=== PATIENT | female | born 1940 | race Caucasian/White ===

== ENCOUNTER 2020-01-03 08:44 | Observation (INO) | payer MEDICARE ==
[~2020-01-03] VITALS: Ht 152.4 cm; Wt 77.8 kg
[~2020-01-03 08:44] MED LIST: ADULT LOW DOSE81 MG PO; ASPIRIN EC325 MG PO; AZOPT10 ML OU; BENICAR HCT 401 EAC1 PO; CALTRATE 600 +1 EAC1 PO; CEPHALEXIN500 MG PO; CLOPIDOGREL75 MG PO; HYDROCODON-ACE1 EAC8 PO; I-CAPS WITH LU1 EACH PO; IRON27 MG PO; LEVOTHYROXINE25 MCG PO; LIOTHYRONINE SO5 MCG PO; LUMIGAN2.5 M1 OU; MECLIZINE HCL25 MG PO; MELATONIN10 M2 PO; METOPROLOL SUCC25 MG PO; METOPROLOL SUCC50 MG PO; MIRALAX17 GM PO; NABUMETONE750 MG PO; NITROGLYCERIN12 GM NAS; NORCO 7.5-3251 EACH PO; ONDANSETRON HCL8 MG PO; OXYCODONE HCL5 MG PO; PANTOPRAZOLE SO40 MG PO; SIMVASTATIN80 MG PO; TRAZODONE HCL100 MG PO; VALACYCLOVIR1000 MG PO; XARELTO10 MG PO; ZANTAC 7575 MG PO; ZYRTEC10 MG PO
--- NOTE | 2020-01-03 16:02 | EKG ---
[facility] [address] [facility] [facility] [place], [place] [address] Signed Sinus tachycardia with 2nd degree AV block (Mobitz I) Low voltage QRS Cannot rule out Anteroseptal infarct (cited on or before 08-OCT-2016) ST \T\ T wave abnormality, consider inferior ischemia Abnormal ECG When compared with ECG of 08-OCT-2016 13:23, Significant changes have occurred Confirmed by TAMMY ESPOSITO MD ([id number]) on 01/03/2020 4:02:10 PM Electronically Signed By: TAMMY ESPOSITO MD 01/03/20 1602 PATIENT NAME: EUN HANNAH Electrocardiogram DATE OF : 36 PHYSICIAN: TAMMY ESPOSITO MD REPORT #: [id number] REPORT IS CONFIDENTIAL AND NOT TO BE RELEASED WITHOUT AUTHORIZATION
--- NOTE | 2020-01-03 16:21 | NUR ---
REPORT RECEIVED FROM ER.
[2020-01-03] MEDS ORDERED: COSOPT EYE DROP10 ML OU (16:27)
--- NOTE | 2020-01-03 17:05 | NUR ---
PT ARRIVED TO FLOOR VIA STRETCHER. PT IS ORIENTED TO DATE, REASON FOR ADMISSION, AND PLACE. LUNGS CLEAR. HEART SOUNDS REGULAR. BOWEL TONES ACTIVE. IV FLUIDS AND ABX STARTED. ORIENTED TO ROOM. DINNER ORDERED. CALL LIGHT IN REACH.
--- NOTE | 2020-01-03 19:11 | NUR ---
PATIETN SITTING UP IN BED WORKING ON DINNER. NO VOID, RN AWARE. CALL LIGHT IN REACH. NO FURTHER NEEDS AT THIS TIME.
--- NOTE | 2020-01-03 19:15 | NUR ---
BEDSIDE REPORT RECEIVED FROM OFFGOING RNZAK.
--- NOTE | 2020-01-03 19:30 | NUR ---
PATIENT WANTING TO USE THE TOILET. THIS GAS SYSTEMS WORKER AND MICROBIOLOGY MANAGER SULEIMAN HELPED PATIENT. USED WALKER. PATIENT IS BACK IN BED. CALL LIGHT IN REACH. WIPED FACE AND HANDS. OFFERED TO HAVE DENTURES SOAKED OVERNIGHT. PATIENT REFUSED STATED SHE TAKES IT OFF IN THE MORNING AND CLEANED AND PUT IT BACK ON. BED ALARM ON FOR SAFETY. ICE WATER REFILLED.
--- NOTE | 2020-01-03 19:35 | NUR ---
CALL LIGHT ANSWERED. 1PA W FWW TO RESTROOM FOR VOID AND BACK TO BED. CHUX CHANGED, ATTENDS IN PLACE. CALL LIGHT IN REACH, BED ALARM ON.
--- NOTE | 2020-01-03 21:00 | NUR ---
PT ASSESSMENT COMPLETE. PT RESTINGI N BED WATCHING TV. DENIES PAIN, NAUSEA, OR SOB. PT ALERT AND ORIENTED. VERY TALKATIVE ABOUT HER PAST, MARRIAGES, AND CHILDREN. PT IN GOOD SPIRITS. TELE#[address], SR, HR 84. BLE WARM AND REDDENED, PT DENIES TENDERNESS. CMS INTACT. ICE WATER REFILLED. PT ORIENTED TO ROOM AND CALL LIGHT SYSTEM, AGREES TO USE FOR NEEDS. ROOM IN VIEW OF RN STATION. PT DENIES FURTHER NEEDS.
--- NOTE | 2020-01-03 23:16 | NUR ---
PT RESTING IN BED, LYING ON HER L SIDE. RESPIRATIONS EVEN AND UNLABORED. APPEARS TO BE SLEEPING. CALL LIGHT IN REACH. ROOM IN VIEW OF RN STATION.
--- NOTE | 2020-01-04 02:23 | NUR ---
PT ASSESSMENT COMPLETE. PT SITTING AT EDGE OF BED WITH BED ALARM SOUNDING. PT REPORTS THAT SHE NEEDS TO USE THE BATHROOM. PT ASSISTED TO BATHROOM AND BACK TO BED WITH 1 PA. TOLERATED WELL. PT DENIES PAIN, NAUSEA, OR SOB. REDNESS TO BLE'S CONTINUES, WARM TO TOUCH. PT DENIES PAIN OR TENDERNESS. HYDROGRAPHIC ENGINEER INTACT TO ALL EXTREMTIES. BED ALARM ACTIVE. PT DENIES FURTHER NEEDS. CALL LIGHT IN REACH.
--- NOTE | 2020-01-04 03:30 | NUR ---
INTERMODAL DISPATCHER TO ROOM FOR BED ALARM SOUNDING. PT ATTEMPTING TO PULL BLANKETS OFF, STATES SHE WAS TRYING TO GET UNTANGLED FROM TELE MONITOR. TELE PLACED BACK IN GOWN POCKET. PT DENIES FURTHER NEEDS AT THIS TIME. CALL LIGHT IN REACH.
--- NOTE | 2020-01-04 07:23 | NUR ---
REPORT RECEIVED. PT IN BED. SBA WIT HFWW TO BATHROOM. BACK TO BED. BED ALARM IN PLACE. CALL LIGHT IN REACH.
--- NOTE | 2020-01-04 08:36 | NUR ---
PT ASSISSTED TO CHAIR FOR BREAKFAST.
--- NOTE | 2020-01-04 09:45 | NUR ---
CM initial assessment completed with pt. She is eating. States she lives alone on [address]. There on 3 hours on the property and everyone looks out for her. Her son in law, Vinh, visits daily. Pt uses a walker for DME. She no longer drives. States she was 2 years ago. Plans on going home, denies need for any placement.
--- NOTE | 2020-01-04 10:23 | NUR ---
PATIENT IN BED WATCHING TV, BED ALARM ON. WARM WASHCLOTH GIVEN. AM CARE DONE. CALL LIGHT IN REACH. NO FURTHER NEEDS AT THIS TIME.
--- NOTE | 2020-01-04 11:15 | NUR ---
PT ASSISTED BACK TO BED. BED ALARM IN PLACE. DENEIS PAIN. CALL LIGHT IN REACH.
--- NOTE | 2020-01-04 11:24 | NUR ---
MED REC COMPLETE
--- NOTE | 2020-01-04 12:49 | NUR ---
PT ASSISTED TO BATHROOM FOR 1 UNMEASURED VOID. ASSISTED TO CHAIR. VISITING WITH DAUGHTER.
--- NOTE | 2020-01-04 13:42 | NUR ---
PATIENT TO BED FROM CHAIR, 1PA FWW. BED ALARM ON. FRESH WATER GIVEN. CALL LIGHT IN REACH. NO FURTHER NEEDS AT THIS TIME.
--- NOTE | 2020-01-04 14:23 | NUR ---
PT RESTING IN BED ALERT AND SOMEWHAT CONFUSED. PT RAMBLED SOME SWITCH SUBJECTS AND SEEMED TO GET SOME IMPORTANT FACTS AND TIMELINES OUT OF ORDER. PT IS VERY PLEASANT, REQUESTED PRAYER AND LEFT G.POST
--- NOTE | 2020-01-04 16:16 | NUR ---
PATIENT REFUSED SHOWER, SAID SHE WOULD RATHER DO IT TOMORROW MORNING.
--- NOTE | 2020-01-04 16:47 | NUR ---
PT REFUSING TO GET OOB TO CHAIR FOR DINNER. REQUESTING WARM BLANKET. CALL LIGHT IN REACH.
--- NOTE | 2020-01-04 17:10 | NUR ---
ATTEMPTED TO GET PT OOB TO CHAIR FOR DINNER AGIAN. PT AGAIN REFUSED. EDUCATED ON IMPORTANCE OF NOT STAYING IN BED. PT AWARE.
--- NOTE | 2020-01-04 19:07 | NUR ---
PATIENT UP TO BATHROOM AND BACK TO BED, 1PA FWW. CALL LIGHT IN REACH. NO FURTHER NEEDS AT THIS TIME.
--- NOTE | 2020-01-04 19:33 | NUR ---
REPORT RECEIVED FROM DAY SHIFT RN. PT SBA WITH FWW TO BR WITH SCULLION CHIEF. BACK TO BED, ARABELLA WELL. IVF INFUSING. DENIES NEEDS. CALL LIGHT IN REACH. BED ALARM ON FOR SAFETY. WHITE BOARD UPDATED.
--- NOTE | 2020-01-04 20:48 | NUR ---
PT DAY RN CONTACTED, TELE WAS DC'D PER DR ESPOSITO.
--- NOTE | 2020-01-04 21:20 | NUR ---
EVENING ASSESSMENT COMPLETE. SCHEDULED MEDS ADMINISTERED PER EMAR. IVF INFUSING. PT DENIES PAIN OR NAUSEA. BLE WARM TO TOUCH. REDNESS AND EDEMA NOTED. NO FURTHER NEEDS. CALL LIGHT IN REACH. BED ALARM FOR SAFETY.
--- NOTE | 2020-01-05 00:49 | NUR ---
CALL LIGHT ANSWERED. PT UP TO BR WITH 1PA AND FWW TO VOID AND HAVE BM. GAIT STEADY. BACK TO BED, ARABELLA WELL. BED ALARM ON. CALL LIGHT IN REACH.
--- NOTE | 2020-01-05 01:35 | NUR ---
PT LYING IN BED RESTING WITH EYES CLOSED, NAD. BED ALARM ON. IVF INFUSING.
--- NOTE | 2020-01-05 05:53 | NUR ---
PT SLEPT WELL. CONFUSED AT TIMES. BED ALARM BUT DOES USE CALL LIGHT. 1PA WITH FWW. RA. AFEBRILE. EDEMA AND REDNESS BLE. IVF. IV ABX. VOID QS. BM X 2 THIS SHIFT.
--- NOTE | 2020-01-05 07:30 | NUR ---
PATIENT USING THE BATHROOM. ONE PERSON ASSISTING WITH WALKER. PATIENT BACKS TO BED. WHITE BOARD UPDATED. CALL LIGHT WITHIN REACH. NO OTHER NEEDS AT THIS TIME
--- NOTE | 2020-01-05 07:35 | NUR ---
received report from bebo molina. pt awake and has pushed call light to go to the bathroom. bernardino collazo in to help pt to restroom at this time
--- NOTE | 2020-01-05 08:37 | NUR ---
IN PTS ROOM TO GIVE MORNING MEDS AND DO MORNING ASSESSMENT. PT STATES THAT SHE WANTS A NAP AND STATES THAT HER BACK IS UNCOMFORTABLE AT THIS TIME SO SHE IS LAYING ON HER RIGHT SIDE
[2020-01-05] MEDS ORDERED: CEPHALEXIN250 MG PO (08:57)
--- NOTE | 2020-01-05 09:59 | NUR ---
PATIENT RESTING IN BED. VITAL SIGNS AND I&O DONE. PATIENT'S BREAKFASR ORDERED. CALL LIGHT WITHIN REACH. NO OTHER NEEDS AT THIS TIME
--- NOTE | 2020-01-05 11:01 | NUR ---
PATIENT RESTING IN BED. PATIENT USES THE BATHROOM, ONE PERSON ASSITING WITH WALKER. PATIENT DID ORAL CARE. PATIENT BACKS TO BED. CALL LIGHT WITHIN REACH. BED ALARM ON. NO OTHER NEEDS AT THIS TIME
--- NOTE | 2020-01-05 12:58 | NUR ---
PT ALERT, LAYING IN BED WITH COVERS PULLED UP. PT WAS WATCHING CARTOONS, ASKED IF I COULD TURN TV OFF. PT SAYS THAT SHE IS READY FOR HER OWN COOKING, "THE STAFF TRY HARD, BUT IT'S NOT MINE". PT THEN BEGAN TO RAMBLE, SURPRISING AT LANGUAGE PT USES TO EXPRESS HERSELF. PT IS TO DC TODAY HOME AND HER DAUGHTER IS COMING. PT OFTEN TALKS ABOUT LOSING HER AND HOW THEY MET. PT REQUESTED PRAYER BEFORE I LEFT
== END 2020-01-05 12:25 | disposition home or self-care (01) ==
LOC: ED 08:44 → MS 08:45
PROVIDERS: ADMIT Internal Medicine
DX: F03.90 Unspecified dementia, unspecified severity, without behavioral disturbance, psychotic disturbance, mood disturbance, and anxiety (principal); R44.3 Hallucinations, unspecified; L03.115 Cellulitis of right lower limb; L03.116 Cellulitis of left lower limb; E03.9 Hypothyroidism, unspecified; I10 Essential (primary) hypertension; I25.10 Atherosclerotic heart disease of native coronary artery without angina pectoris; Z87.891 Personal history of nicotine dependence
CPT/HCPCS: 36415; 70450; 71046; 74177; 80048; 80053; 81001; 83605; 83615; 83735; 84100; 84484; 85025; 85379; 93005; 93010; 96361; 96365; 96366; 99285-25; C9803; G0378; J0696; J3480; Q9967; U0002

== ENCOUNTER 2021-10-02 15:44 | Inpatient (IN) | payer MEDICARE ==
[~2021-10-02] VITALS: Ht 152.4 cm; Wt 80.2 kg
[~2021-10-02 15:44] MED LIST changes: +CEPHALEXIN250 MG PO; +COSOPT EYE DROP10 ML OU; -NITROGLYCERIN12 GM NAS; +NITROGLYCERIN12 GM TL
[2021-10-02] MEDS ORDERED: LEVOTHYROXINE75 MCG PO (18:35)
[2021-10-02] MEDS ORDERED: OLMESARTAN-HCT1 EAC1 PO (18:35)
[2021-10-02] MEDS ORDERED: LUMIGAN2.5 M1 OU (18:38)
--- NOTE | 2021-10-02 20:16 | NUR ---
PATIENT ARRIVE TO THE FLOOR VIA STRETCHER. STAFF ASSISTED PATIENT TO HOSPITAL BED. PATIENTS ADMISSION COMPELTED BY DAMON TRUJILLO RN. PATIENT ASSESMENT COMPLETED. SCHEDULED MEDICATIONS GIVEN PER ORDER. PATIENTS IV INFUSING PER ORDER. PATIENT DENIES ANY PAIN OR NAUSEA. PATIENT PROVIDED WITH SANDWICH BOX AND FERSH ICE WATER. PATIENT IS ORIENT TO SELF AND FAMILY. PATIENTS RECOGNITION OF EVENTS LEADING UP TO HOSPITAL VISIT ARE SCATTERED. BED ALARM PLACED ON FOR SAFETY. CALL LIGHT IN REACH.
--- NOTE | 2021-10-02 21:39 | NUR ---
NEW IV STARTED. IV INFUSING PER ORDER. PATIENT FINISHED SANDWICH BOX. PATIENT DENIES ANY NEEDS. CALL LIGHT IN REACH. BED ALARM ON FOR SAFETY.
--- NOTE | 2021-10-02 22:54 | NUR ---
PATIENT FOUND WITH GOWN OFF. PATIENTS GOWN PLACED BACK ON. PATIENT ASSISTED A 2PA PIVOT TO [facility]. PATIENT STRUGGLED WITH ACTIVITY. PATIENT ABLE TO VOID. PATIENT IS BACK IN BED RESTING. PATIENTS IV INFUSING PER ORDER. PATIENT DENIES ANY NEEDS. CALL LIGHT IN REACH. BED ALARM ON FOR SAFETY.
--- NOTE | 2021-10-02 23:51 | NUR ---
2 PA. PATIENT WAS UP TO BEDSIDE COMMODE. PATIENT'S LEG DOES NOT COOPERATE WELL ON MAKING STEP. A LITTLE BETTER GETTING UP AT THE RIGHT SIDE OF THE BED. PATIENT IS BACK IN BED. BED ALARM ON. CALL LIGHT IN HAND.
--- NOTE | 2021-10-03 00:06 | NUR ---
PATIENT SEEN BY THIS RN TRYING TO GET OUT OF BED. PATIENT ASSISTED TO THE BSC A 2PA PIVOT XFER. PATIENT ABLE TO VOID. PATIENT BACK IN BED RESTING. PATIENTS BED ALARM ON FOR SAFETY. CALL LIGHT IN REACH.
--- NOTE | 2021-10-03 01:05 | NUR ---
PATIENT IS RESTING IN BED WITH EYES CLOSED, RR 17. CALL LIGHT IN REACH. BED ALARM ON FOR SAFETY. IV INFUSING PER ORDER.
--- NOTE | 2021-10-03 01:42 | NUR ---
PATIENTS VITALS TAKEN AND RECORDED. PATIENTS ATTEND IS DRY AT THIS TIME. IV INFUSING PER ORDER. PATIENT DENIES ANY NEEDS. CALL LIGHT IN REACH. BED ALARM ON FOR SAFETY.
--- NOTE | 2021-10-03 01:59 | NUR ---
VITALS TAKEN AND RECORDED. INTAKE AND OUTPUT RECORDED. PATIENTS ATTEND IS DRY AT THIS TIME. NO NEEDS NOTED. CALL LIGHT IN REACH. BED ALARM ON FOR SAFETY.
--- NOTE | 2021-10-03 03:58 | NUR ---
PATIENT IS RESTING IN BED WITH EYES CLOSED, RR 19. CALL LIGHT IN REACH. BED ALARM ON FOR SAFETY.
--- NOTE | 2021-10-03 06:02 | NUR ---
PATIENT ASSISTED TO THE BSC A 2PA. PATIENT WAS ABLE TO VOID. PATIENT IS BACK IN BED RESTING. VITALS TAKEN AND RECORDED. IV INFUSING PER ORDER. NO FURTHER NEEDS NOTED. CALL LIGHT IN [facility]. BED ALARM ON FOR SAFETY.
--- NOTE | 2021-10-03 07:33 | NUR ---
Patient is laying in bed supine, eyes closed, respirtion 17, apperaing to be in no distress. Bedside shift report completed, however we did not wake the patient due to she had not been sleeping while during the night, and is now resting.
--- NOTE | 2021-10-03 08:48 | NUR ---
due to the patient's weakness, the orthostatic where completed about 3 minutes apart, laying and standing document, sitting BP 165/67 pulse 67.
--- NOTE | 2021-10-03 08:50 | NUR ---
AM assessment completed, AM medications given, and assisted the patient to the bedside commode, 1 assist to the bedside commode, however 2 assist to wipe and return her back to bed. Her legs per the pateint feel very heavey, and she is very weak. PT is to see the patient.
--- NOTE | 2021-10-03 09:50 | NUR ---
Spoke with Yokasta. She states she lives alone on [facility] [address]. Family live in [place] and daughter visits her everyday and helps her with any needs. Daughter completes house hold tasks, shopping, cooking, assists her to shower. Pt denies needs and plans on dc to home as soon as possible.
--- NOTE | 2021-10-03 09:54 | NUR ---
Patient in bed at this time. Her thyroid medications is finally correct and has been reviewed, so medication is now being given.
--- NOTE | 2021-10-03 10:55 | NUR ---
patient up in the chair, no new compliants, she is a little more oriented at this time. Case Management is at bedside
--- NOTE | 2021-10-03 11:11 | NUR ---
IV pump alarming, fluids low. Readjusted the volume, and called pharmacy for a new bag. Patient at this time is still sitting up in the chair. She reports no pain, and her respiration are 18
--- NOTE | 2021-10-03 11:53 | NUR ---
Patient called for assistance cause something was beep, went to assess the assistance needed, the beeping was her IV pump, then she had more questions. She was sitting in the her chair, had call light to her ear. When I asked how I could help, she was like "I need my walker to go to the bathroom, and how do I get a hold to my daughter, and when am I going home. " Updated the patient again, she verbalized some understanding, however had a very puzzled look to her.
--- NOTE | 2021-10-03 13:15 | NUR ---
patient's daughter at the bedside while she is on lunch, patient called the daughter stating she wanted to go home. Verified with the MD and as we thought until her weakness has improved to a safe level she will not be discharged, updated the patient and the daughter.
--- NOTE | 2021-10-03 15:20 | NUR ---
patient in the chair with eyes closed, respiration at 17, no acute distress noted.
--- NOTE | 2021-10-03 16:15 | NUR ---
patient sitting in the chair watching TV, no pain, no respitory distress, intermittent confusion, history of dementia.
--- NOTE | 2021-10-03 16:19 | NUR ---
MD at bedside talking with the patient, afternoon assessment completed. No compliants from the patient
--- NOTE | 2021-10-03 16:22 | NUR ---
medications reconciled using pharmacy records, PCP notes and patient interview
--- NOTE | 2021-10-03 17:16 | EKG ---
[facility] [address] [place] [address] Signed Normal sinus rhythm Low voltage QRS Cannot rule out Anterior infarct (cited on or before 08-OCT-2016) Abnormal ECG When compared with ECG of 03-JAN-2020 12:26, Sinus rhythm is no longer with 2nd degree AV block (Mobitz I) Questionable change in initial forces of Anterior leads Nonspecific T wave abnormality has replaced inverted T waves in Inferior leads Nonspecific T wave abnormality now evident in Anterior leads Confirmed by WAYNE MARTIN MD ([id number]) on 10/03/2021 5:16:29 PM Electronically Signed By: WAYNE MARTIN MD 10/03/21 1716 PATIENT NAME: EUN HANNAH Electrocardiogram DATE OF : 36 PHYSICIAN: WAYNE MARTIN MD REPORT #: [id number] REPORT IS CONFIDENTIAL AND NOT TO BE RELEASED WITHOUT AUTHORIZATION
--- NOTE | 2021-10-03 18:15 | NUR ---
patient eating dinner, IV antibiotic started. Patient is having increased confusion as the sun sets
--- NOTE | 2021-10-03 19:40 | NUR ---
RECEIVED REPORT FROM DAY SHIFT RN. PATIENT IS RESTING IN BED. NO NEEDS NOTED. ALARM ON FOR SAFETY
--- NOTE | 2021-10-03 20:32 | NUR ---
PT IN BED, REPOSITIONED WITH AUTOMATIC HEMMER ASSISTANCE. PRIOR TO THIS, PT WITH LEGS OVER S/R, WANTING TO USE BATHROOM. WITH 2, PT OUT OF BED, FWW TO [facility], HAD UNMEASURED VOID WITH SMALL SOFT BM. CLEAN ATTENDS PLACED, THEY WERE URINE SOILED. BACK TO BED WITH ONE ASSIST, CUEING. NOTED IV CATH LAYING ON FLOOR PRIOR TO ASSISTING PT UP OUT OF BED, ONE IN THE LAC REMAINS. CATH INTACT, PT UNAWARE TO HOW IT WAS ON THE FLOOR. VS COMPLETED, CALL LIGHT WITHIN REACH, BED ALARM ON.
--- NOTE | 2021-10-03 20:40 | NUR ---
PATIENT ASSESEMENT COMPLETED. PATIENTS ATTEND IS DRY AT THIS TIME. PATIENTS IV FLUSHED AND SL PER ORDER. PATIENTS SCHEDULED MEDICATIONS GIVEN PER ORDER. PATIENT REORIENTED TO SURROUNDINGS. PATIENT DENIES ANY NEEDS. CALL LIGHT IN REACH. BED ALARM ON FOR SAFETY.
--- NOTE | 2021-10-03 21:30 | NUR ---
ASSISTED RN WITH BOOST IN BED
--- NOTE | 2021-10-03 23:03 | NUR ---
PATIENT IS RESTING IN BED WITH EYE CLOSED, RR 15. CALL LIGHT IN REACH. BED ALARM ON FOR SAFETY.
--- NOTE | 2021-10-04 01:15 | NUR ---
PATIENT ASSISTED TO THE BSC A 1PA W/FWW. PATIENT ABLE TO VOID. PATIENT BACK IN BED RESTING. PATIENT DENIES ANY NEEDS. CALL LIGHT IN REACH. BED ALARM ON FOR SAFETY.
--- NOTE | 2021-10-04 02:42 | NUR ---
PATIENT IS RESTING IN BED WITH EYES CLOSED, RR 16. CALL LIGHT IN REACH. BED ALARM ON FOR SAFETY.
--- NOTE | 2021-10-04 04:36 | NUR ---
PATIENT IS RESTING IN BED WITH EYES CLSOED, RR 17. CALL LIGHT IN REACH. BED ALARM ON FOR SAFETY.
--- NOTE | 2021-10-04 05:32 | NUR ---
BED ALARM ALERTED STAFF. PATIENT ASSISTED TO THE BSC A 1PA W/FWW. PATIENT HAD LARGE SOFT BM AND ABLE TO VOID. PATIENT IS BACK IN BED RESTING. VITALS TAKEN AND RECORDED. INTAKE AND OUTPUT RECORDED. PATIENT DENIES ANY NEEDS. CALL LIGHT IN REACH. BED ALARM ON FOR SAFETY.
--- NOTE | 2021-10-04 07:42 | NUR ---
report received from Jeff BOLIVAR. patient is sleeping supine at this time. Daughter called approximatly 0730 requesting and update and for discharge plan. She requested a call from Dr Alcocer after morning rounds. will notify Dr Alcocer and JAREK
--- NOTE | 2021-10-04 08:29 | NUR ---
ASSISTED PATIENT TO THE BATHROOM WITH FWW WALKER AND SBA. ASSISTED PATIENT TO CHAIR FOR BREAKFAST. PER PAITENT REQUEST ASSISTED WITH CUTTING UP BRITISH TOAST AND OPENING MILD. AM MEDS PROVIDED. PT WITH A BM THIS MORINING AND VOIDING IN HAT
--- NOTE | 2021-10-04 09:24 | NUR ---
REMOVED BREAKFAST TRAY. PATIENT ATE 100% SITTING UP IN CHAIR WATCHING TV. DENIES NEEDS AT THIS TIME.
--- NOTE | 2021-10-04 09:46 | NUR ---
SHOP TECHNICIAN REPORTED THAT SHE FOUND THE IV NEAR THE PATIENT WHILE SHE WAS SITTING UP IN THE CHIAR. THE PATIENT ADMITTED SHE REMOVED HER OWN IV BECUASE "IT ITCHED". THERAPY CURRENTLY IN THE ROOM WORKING WITH PT
--- NOTE | 2021-10-04 10:46 | NUR ---
patient completed therapy. family at bedside. patient is currenlty sitting up in the chair visiting with family
--- NOTE | 2021-10-04 12:00 | NUR ---
PATIENT'S DAUGHTER HERE WANTING TO KNOW ABOUT DISCHARGE PLAN AND UPATATE ON PLAN OF CARE. DISCUSSED PLAN OF CARE AND CONTACTED GOVIND IN CM TO DISCUSS DISCUARGE PLANS WITH PATIENTS DAUGHTER ITALIA
--- NOTE | 2021-10-04 12:30 | NUR ---
Spoke with pt and her daughter. Daughter has concerns as she works and wanting to know if she will need to take pt home tomorrow. UPdated per [address] Alcocer, recommendation from PT is for pt to cont. with PT for 2-3 days for safe discharge. Daughter has questions regarding UTI and discussed symptoms. She frequently talks about her mom having dementia and pt is angered by this and states she doesn't know what she is talking about and her son in law lies. Updated daughter I will get her info on UTIs and Halie charge also printed education for dementia and care givers.
--- NOTE | 2021-10-04 14:00 | NUR ---
PATIENT REQUESTED TO GO BACK TO BED. ASSISTED PATIENT BACK TO BED. USED TWO PERSON ASSIST TO HELP PATIENT OUT OF CHAIR. PATIENT STATED SHE FELT WEEK PRIOR TO GETTING INTO BED. 2 PERSON ASSIST TO REPOSION ONCE IN BED. CALL LIGHT WITHIN REACH. WATER AVAILABLE. BED ALARM ON FOR SAFETY
--- NOTE | 2021-10-04 16:23 | NUR ---
ROUNDED ON PATIENT AND PROVIDED EVEING MEDICATIONS. SHE REQUESTED TO GO TO THE BATHROOM. AMBULATED TO BR WITH FWW AND CONTACT VIJAY MACIEL. VOIDED AND MISSED HAT. SMALL SMEAR STOOL PRESENT. ASSISTED PATIENT TO CHAIR FOR DINNER. PATIENT DOES WELL WITH VERBAL QUIING. FORGETFUL. NEEDS REMINDING THAT SHE IS IN THE HOSPITAL
--- NOTE | 2021-10-04 18:00 | NUR ---
Patient requested to go to bed. Reoriented patient reminding her she is in the hospital. She was agreeable to move from the chair in her room to the bed. She declined needing to void prior to getting back into bed. Wears briefs and pads due to dribbling and occasional incontinent stool smears. She does not use her call raphael. bed and chair alarm used for safety. she calls out when she would like help. She is unable to stand independently when getting out of the chair. needs 2 person assist to stand from chair then one person contact alexanderyoung while walking.
--- NOTE | 2021-10-04 19:10 | NUR ---
SHIFT REPORT RECEIVED FROM DAYSCTFT KATT GERONIMO AT BEDSIDE. pt AWAKE AND RESTING IN BED, ON RA. RR EVEN AND UNLABORED, NO DISTRESS NOTED. BED ALARM ON FOR SAFETY AND CALL LIGHT IN REACH. BED ALARM ON FOR SAFETY.
--- NOTE | 2021-10-04 21:05 | NUR ---
IN TO ASSIST RN WITH VITALS, I&Os, FRESH ICE WATER GIVEN, BOOSTED PT IN BED, NO FURTHER NEEDS AT THIS TIME
--- NOTE | 2021-10-04 21:06 | NUR ---
ASSESSMENT COMPLETE, SCHEDULED MEDS GIVEN (SEE EMAR). pt A/O TO SELF AND PLACE. HX DEMENTIA, BED ALARM ON FOR SAFETY. NO ISSUES SWALLOWING NOTED. IV SITE WNL, FLUSHES EASILY AND REMAINS SALINE LOCKED. NO FURTHER NEEDS OR CONCERNS VERBALIZED. pt DENEIS PAIN AND NAUSEA. CALL LIGHT INR EACH, pt IN VIEW OF RN STATION.
--- NOTE | 2021-10-04 23:05 | NUR ---
BED ALARM SET OFF, PT NEEDS TO VOD, ASSISTED TO BSC 1PA PIVOT, NEW PERIPAD IN PLACE, BACK TO BED, NO FURTHER NEEDS AT THIS TIME
--- NOTE | 2021-10-04 23:58 | NUR ---
ROUNDED ON pt, pt RESTING IN BED WITH EYES CLOSED. RR EVEN AND UNLABORED. NO DISTRESS NOTED. BED ALARM REMAINS ON AND CALL LIGHT IN REACH. pt BRIEFLY AWOKE TO VOICE, DENEIS NEEDS OR CONCERNS. IV SITE REMAINS WNL AND IS SALINE LOCKED. WILL CONTINUE TO MONITOR.
--- NOTE | 2021-10-05 02:27 | NUR ---
ASSESSMENT COMPLETE, NO NEW CHANGES OR CONCERNS. pt AWAKE AND RESTING IN BED, REPORTS NEED TO VOID, MARIA A PAD INCONT, pt UP 1PA WITH FWW TO BSC. DRY ATTENDS IN PLACE. IV SITE REMAINS WNL, SALINE LOCKED. MAURICE MARTINEZ REMAINS WITH pt AT THIS TIME. pt A/O TO SELF AND PLACE, USES BED ALARM FOR SAFETY.
--- NOTE | 2021-10-05 05:22 | NUR ---
VSS AND I&O'S COMPLETE. ASSESSMENT ALSO DONE, NO NEW CHANGES OR CONCERNS. pt DENIES PAIN AND NAUSEA. BOWEL TONES REMAINS ACTIVE. IV SITE WNL, FLUIDS INFUSING DIRECTED. pt UP SBA TO VOID VIA BSC AND BACK TO BED. BED ALARM RESUMED. FRESH WATER PROVIDED. NO FURTHER NEEDS, CALL LIGHT IN REACH.
--- NOTE | 2021-10-05 05:30 | NUR ---
pt RESTING IN BED WITH EYES CLOSED, RR EVEN AND UNLABORED. NO DISTRESS NOTED. pt REMAINS ON RA. BED ALARM REMAINS ON FOR SAFETY.
--- NOTE | 2021-10-05 06:14 | NUR ---
SCHEDULED THYROID MEDICATION GIVEN, SEE EMAR. pt UP 1PA WITH FWW TO VID VIA BSC. pt BACK TO BED WITH BED ALARM RESUMED. IV SITE REMAINS SALINE LCOKED, WNL. NO FURTHER NEEDS, CALL LIGHT IN REACH.
--- NOTE | 2021-10-05 07:36 | NUR ---
Bedside shift report was compelted, neuro checks completed during report. Patient is alert to place, self, she has some confusion on the year, city, president. She has a history of dementia and appears to be at ther baseline. She requested to use the bathroom, an a LAND APPRAISER assisted her. She reports no pain and no additional needs.
--- NOTE | 2021-10-05 08:37 | NUR ---
Assessment completed, AM medications given, assisted the patient to the chair. Patient reports no pain, no needs. Linen changed by FLIGHT TOWER DISPATCHER
--- NOTE | 2021-10-05 10:30 | NUR ---
patient requested her lights off, TV on, and she wanted to go back to bed. However, she was advised to remain up in the chair, but we could at least lift her legs up and allow her to rest until her shower. She does seem a little more anxious, figdity today.
--- NOTE | 2021-10-05 11:15 | NUR ---
THIS PRIMING MIXTURE CARRIER HELP PT TAKE A SHOWER. A NEW GOWN AND SOCKS WERE GIVEN. PT IS NOW IN CHAIR WITH A WARM BLANKET AND LUNCH. CALL LIGHT IS WITHIN REACH. NO FURTHER NEEDS AT THIS TIME.
--- NOTE | 2021-10-05 12:31 | NUR ---
Patient sitting up in her chair, having lunch. NO needs at this time.
--- NOTE | 2021-10-05 13:32 | NUR ---
Patient up in the chair, folding wash clothes watching TV. She reports no pain and no needs at this time.
--- NOTE | 2021-10-05 14:48 | NUR ---
Afternoon assessment completed. Patient continues to sit up in the chair, occassionally elevating her BLE. She report no pains, denies need for the restroom at this time. She is appears to be at her baseline mentally, and is improving with her weakness the more she works with PT.
--- NOTE | 2021-10-05 15:17 | NUR ---
patient slight more confused this evening, but this appears to be her baseline with her dementia history. Her blinds are open to view the nurses station and her blinds to the outside as well are open. She has been reoriented to place and situation
--- NOTE | 2021-10-05 19:10 | NUR ---
BEDSIDE REPORT FROM LEMUEL BOLIVAR TRAVELER. PT IS FORGETFUL, SHE REORIENTS WELL. LEMUEL BOLIVAR NOTED THAT PT IV IS MISSING, LEMUEL BOLIVAR SAID "PT MUST HAVE PULLED IT OUT" NO IV TAPE OR CANNULA NOTED IN BED OR AROUND BED. WILL TALKED TO IN REGARDS TO LEAVING IV OUT OR REPLACING IT. PT HAS NO REPORT OF PAIN OR NAUSEA.
--- NOTE | 2021-10-05 20:59 | NUR ---
PT ONE PERSON ASSIST TO BATHROOM WIOTH FWW, V/S DONE, ASSESSMENT COMPLETE, HS MED PASS COMPLETE. PT REPORTS NO PAIN OR NAUSEA, DISORIENTED TO ALL BUT SELF. REORIENTS WELL, COOPERATIVE WITH CARE. NO COMPLAINT FO PAIN OR NAUSEA.
--- NOTE | 2021-10-05 22:00 | NUR ---
PT ASSISTED TO BATHROOM BY RONNIE ARENAS RN WITH FWW.
--- NOTE | 2021-10-05 23:55 | NUR ---
PT RESTING IN BED EYES CLOSED, RESP EVEN AT 16 BPM, NO DISTRESS NOTED. HEAD OF BED AT 30 DEGRESS, CALL LIGHT IN REACH, BED ALARM ON FOR PT SAFETY.
--- NOTE | 2021-10-06 00:26 | NUR ---
BED ALARM SET OFF, PT NEEDING TO USE THE BSC, 1PA PIVOT, BACK TO BED, BED ALARM ON
--- NOTE | 2021-10-06 00:30 | NUR ---
PT UP TO BATHROOM TO VOID WITH FLAT SCREEN WORKER JUAN, USED FWW. TOLERATED ACTIVITY WELL.
--- NOTE | 2021-10-06 04:45 | NUR ---
IN TO ASSIST PT UP TO THE BSC, PT INCONT ALSO, PT BACK TO BED, VS TAKEN, NO FURTHER NEEDS AT THIS TIME, BED ALARM SET
--- NOTE | 2021-10-06 04:53 | NUR ---
PT UP TO BEDSIDE COMMODE SHE HAS BEEN UP TO BATHROOM AT LEAST EVERY TWO HOURS OVER SHIFT, SHE HAS BEEN INCONT. AT TIMES WELL. VOIDING WELL OVER QUANTITY SUFFICIENT. SHE HAS NO REPORTS OF PAIN OR NAUSEA. SHE HAS CALL LIGHT IN REACH AND BED ALARM ON FOR PT SAFETY.
--- NOTE | 2021-10-06 05:11 | NUR ---
PT HAS BEEN UP FREQUENTLY TO VOID OVER SHIFT, SHE HAS SLEPT SMALL INTERVALS, SHE ALSO HAS INCONT IN BRIEFS, BED ALARM ON OVER SHIFT, PT DOES NOT USE NURSE CALL LIGHT SHE EXITS BED AND SETS OFF ALARMS. SHE HAS BEEN COOPERATIVE WITH CARE. SHE HAS BEEN DISORIENTED TO ALL EXCEPT SELF AND FAMILY. SHE HAS ENJOYED TELLING FMAILY HISTORY STORIES ABOUT HER MOTHER AND HER SPOUSE.
--- NOTE | 2021-10-06 06:39 | NUR ---
BED ALARM SET OFF, ASSISTED UP TO THE BSC, BACK TO BED, BED ALARM SET
--- NOTE | 2021-10-06 08:51 | NUR ---
Patient completed breakfast, remains up in the chair. Assessment and AM medications given. Patient says she just wants to go home. Updated her on the plan of care and potential of discharge in the next couple of days. She is a little more orient this AM compared to last night. She does have a dry cough, and during the night had some notable expitory wheezes, none at this time.
--- NOTE | 2021-10-06 09:34 | NUR ---
patient laying in bed, listening to TV. she has no needs at this time per the patient
--- NOTE | 2021-10-06 11:56 | NUR ---
Her daughter just arrived at bedside for a visit. Lunch has arrived, patient doesnt want to get up for lunch so lunch will be eaten in bed.
--- NOTE | 2021-10-06 13:58 | NUR ---
updated the patient that PT was coming to work with her, she verbalizes understanding. Updated her on the plans for discharge. Her daughter did visit today
--- NOTE | 2021-10-06 15:04 | NUR ---
patient worked with PT, however she was unable to do at the same level as previously. She reports no pain, no needs. 1500 antibiotic given.
--- NOTE | 2021-10-06 16:52 | NUR ---
Patient laying in bed, slight more confused, but still within her baseline. She took a quick nap and is now being reoriented to her surroundings.
--- NOTE | 2021-10-06 17:26 | NUR ---
Patient up to the chair having dinner, she thought she walked herself from the bed to the chair, but the PRODUCTION ASSEMBLY OPERATOR actually helped her to the chair.
--- NOTE | 2021-10-06 19:47 | NUR ---
REPORT RECEIVED FROM DAY SHIFT RN. PT LYING IN BED AWAKE AND ALERT. SBA TO BSC TO VOID. STAFF ASSIST WITH MARIA A CARE. BACK TO BED, ARABELLA WELL. DENIES FURTHER NEEDS. BED ALARM FOR SAFETY. CALL LIGHT IN REACH. WHITE BOARD UPDATED.
--- NOTE | 2021-10-06 20:26 | NUR ---
PT UP TO BR WITH SBA TO VOID. STAFF ASSIST WITH MARIA A CARE. BACK TO BED. EVENING ASSESSMENT COMPLETE. PT ALERT AND ORIENTED X 3. SCHEDULED MEDS ADMINISTERED PER EMAR. PT DENIES PAIN OR NAUSEA. ASSISTED TO REPOSITION. DENIES QUESTIONS OR CONCERNS. CALL LIGHT IN REACH.
--- NOTE | 2021-10-06 22:48 | NUR ---
PT RESTING IN BED WITH EYES CLOSED. RESPIRATIONS EVEN. CALL LIGHT IN REACH. BED ALARM IN PLACE.
--- NOTE | 2021-10-07 00:25 | NUR ---
PT LYING ON RIGHT SIDE. EYES CLOSED. RESPIRATIONS EVEN. CALL LIGHT IN REACH. BED ALARM FOR SAFETY.
--- NOTE | 2021-10-07 00:35 | NUR ---
BED ALARM SOUNDING. PT UP TO BSC WITH 1PA AND FWW TO VOID. STAFF ASSIST WITH MARIA A CARE. GAIT STEADY. BACK TO BED. NO FURTHER NEEDS. BED ALARM FOR SAFETY.
--- NOTE | 2021-10-07 02:48 | NUR ---
PT RESTING IN BED WITH EYES CLOSED. RESPIRATIONS EVEN. BED ALARM IN PLACE.
--- NOTE | 2021-10-07 06:11 | NUR ---
VS AND I&O COMPLETE. PT UP TO BSC WITH SBA AND FWW TO VOID AND HAVE MEDIUM SOFT BM. STAFF ASSIST WITH MARIA A CARE. BACK TO BED. SCHEDULED MEDS ADMIN PER EMAR. PT DENIES FURTHER NEEDS. CALL LIGHT IN REACH. BED ALARM FOR SAFETY.
--- NOTE | 2021-10-07 07:19 | NUR ---
Patient sleeping at this time, she slept most of the night per the night nurse. Confusion was at her baseline. She remains without an IV access and is taking all medications by mouth. PT to continue to work with her to get her prepared for home with home health if possible.
--- NOTE | 2021-10-07 08:53 | NUR ---
Patient up in the chair having breakfast watching TV. She reports no pain, denies the need for the bathroom at this time.
--- NOTE | 2021-10-07 10:36 | NUR ---
Patient up in the chair watching tv, she has no needs at this time, just wants to go home.
--- NOTE | 2021-10-07 11:25 | NUR ---
PT in room with the patient at this time. Depends what PT says if the patient will be discharged today per MD
--- NOTE | 2021-10-07 12:12 | NUR ---
Attempted to get a hold of her daughter Valreie, voicemail was left. Will reattempt in a few minutes. Patient will most likely discharged home today with home health
[2021-10-07] MEDS ORDERED: LOSARTAN POTASS25 MG PO (12:22)
--- NOTE | 2021-10-07 12:36 | NUR ---
Spoke with Valerie and Vinh Arenas, regarding discharge of her mother. They verbalized understanding and will be hear at 1430 to get her.
--- NOTE | 2021-10-07 14:33 | NUR ---
discharge instruction discussed with the daughter and the patient. discharge vitals complete, no IV access to remove.
== END 2021-10-07 14:34 | disposition home or self-care (01) | DRG 689 ==
LOC: ED 15:44 → MS 19:04
PROVIDERS: ADMIT Internal Medicine; ATTEND Internal Medicine
DX: N30.00 Acute cystitis without hematuria (principal); G93.41 Metabolic encephalopathy; E86.0 Dehydration; I10 Essential (primary) hypertension; E03.9 Hypothyroidism, unspecified; G30.9 Alzheimer's disease, unspecified; F02.80 Dementia in other diseases classified elsewhere, unspecified severity, without behavioral disturbance, psychotic disturbance, mood disturbance, and anxiety; Z20.822 Contact with and (suspected) exposure to COVID-19; B96.89 Other specified bacterial agents as the cause of diseases classified elsewhere; I25.10 Atherosclerotic heart disease of native coronary artery without angina pectoris; I25.2 Old myocardial infarction; Z87.891 Personal history of nicotine dependence; Z95.5 Presence of coronary angioplasty implant and graft; Z98.890 Other specified postprocedural states; Z79.82 Long term (current) use of aspirin; Z79.899 Other long term (current) drug therapy
CPT/HCPCS: 36415; 51701; 71045; 80053; 81001; 83605; 84443; 85025; 87088; 93005; 93010; 97110; 97116; 97162; 97530; 99285-25; A9270; C9803; J0696; J1650; J3480; J7040; J7120; J7121; U0003

== ENCOUNTER 2021-10-11 08:52 | Observation (INO) | payer MEDICARE ==
[~2021-10-11] VITALS: Ht 152.4 cm; Wt 82.9 kg
[~2021-10-11 08:52] MED LIST changes: +LEVOTHYROXINE75 MCG PO; +LOSARTAN POTASS25 MG PO; +OLMESARTAN-HCT1 EAC1 PO
--- OUTSIDE RECORDS SUMMARY | 2021-10-11 09:00 | XMS ---
PreManage Notification: EUN HANNAH Security [employer] Events No recent Security Events currently on file CRITERIA MET - [facility] [place] - 2 Visits in 30 Days CARE PROVIDERS There are no care providers on record at this time. Sylvia has no Care Guidelines for this patient. [facility] MO.) [facility] NOTE: Visits indicate total known visits. ED/C VISIT TRACKING (12 MO.) [facility] COMPLAINT: - GLF, WEAKNESS 10/02/2021 15:44 [facility] Lugo OR TYPE: Emergency COMPLAINT: - ALTERED MENTAL STATUS INPATIENT VISIT TRACKING (12 MO.) 10/02/2021 19:04 [facility]YELI Lugo OR TYPE: Medical Surgical COMPLAINT: - ENCEPHALOPATHY DIAGNOSES: - Hypothyroidism, unspecified - Essential (primary) hypertension - Metabolic encephalopathy - Dehydration - Urinary tract infection, site not specified [id number]
--- NOTE | 2021-10-11 18:16 | NUR ---
REPORT RECEIVED FROM KATT REYES. AWAITING PTS ARRIVAL TO MED/SURG.
--- NOTE | 2021-10-11 18:47 | NUR ---
PT ARRIVED TO MED/SURG. PT TRANSFERED TO BED WITH 3 PERSON ASSIST, SLIDE TRANSFER. PT VERY FORGETFUL, REPEATING THE SAME STATEMENT "WHERE ARE MY GLASSES." PT REMINDED THAT SHE DID NOT BRING HER GLASSES WITH HER TODAY. PT UNABLE TO REMEMBER THIS EDUCATION. PT DENIES PAIN AND NAUSEA. PT ORIENTED TO ROOM AND CALL LIGHT. VITAL SIGNS STABLE. CALL LIGHT WITHIN REACH. BED RAILS UP. BED ALARM ON.
--- NOTE | 2021-10-11 19:30 | NUR ---
SHIFT REPORT RECEIVED FROM JEREMY BOLIVAR. PT RESTING IN BED. NO NEEDS AT THIS TIME. CALL LIGHT IN REACH.
--- NOTE | 2021-10-11 21:30 | NUR ---
ASSESSMENT, VS AND I&O COMPLETED. PT UP TO BSC, 1PA FWW, BACK TO BED. GCS 15, A&O X4. IV WNL, CDI, FLUSHED WELL. LUNGS CLEAR, HEART TONES REGULAR. ABD SOFT, NONTENDER, BOWEL TONES ACTIVE. CMS INTACT. BLE HAS TRACE EDEMA. BUTTOCKS HAS SEVERAL OLD SCABS, ANNEALING FURNACE TENDER. PT ORIENTED TO ALL BUT FORGETFUL. ICE WATER PROVIDED. NO OTHER NEEDS AT THIS TIME. CALL LIGHT IN REACH, BED ALARM ON.
--- NOTE | 2021-10-11 23:53 | NUR ---
IN TO CHECK ON PT PER RN, PT RESTING AND WHEN ASKED, PT DECLINES NEED TO VOID WITH BSC AT THIS TIME, NO FURTHER NEEDS
--- NOTE | 2021-10-12 02:58 | NUR ---
ASSESSMENT COMPLETED. PT ORIENTED TO ALL BUT TIME. IV WNL. TRACE BLE EDEMA. NO NEEDS AT THIS TIME. CALL LIGHT IN REACH. BED ALARM ON.
--- NOTE | 2021-10-12 05:00 | NUR ---
PT RESTING IN BED, EYES CLOSED. RR EVEN, UNLABORED. CALL LIGHT IN REACH.
--- NOTE | 2021-10-12 05:52 | NUR ---
SCHEDULED MEDS PROVIDED. VS COMPLETED. NO OTHER NEEDS AT THIS TIME. CALL LIGHT IN REACH. BED ALARM ON.
--- NOTE | 2021-10-12 07:00 | NUR ---
IN TO TRY TO GET PT UP FOR A VOID, PT STILL DECLINED NEED TO VOID OR GET UP, ATTENDS CDI, BED ALARM IN PLACE, PT STATES SHE KNOWS HOW TO USE THE CALL LIGHT, NO FURTHER NEEDS AT THIS TIME, RN HAS BEEN INFORMED OF PTs STATUS
--- NOTE | 2021-10-12 07:22 | NUR ---
PT DECLINES TO GET UP TO USE BR SAYING SHE DOESN'T NEED TO GO. RN AND MARUICE MARTINEZ START TO BLADDER SCAN PT SHE IS INCONTINENT OF URINE. BLADDER SCAN ALSO REVEALS 229ML OF URINE. PT UP TO BR WITH MAURICE MARTINEZ.
--- NOTE | 2021-10-12 07:26 | NUR ---
REPORT RECEIVED FROM KATT CABRAL. MISHA REPORTS PT REMAINS DUE TO VOID. BADDER SCAN PERFORMED WITH 229 FOUND IN BLADDER. PT AGREES TO GET UP TO BEDSIDE COMODE AND ATTEMPT TO VOID. PT UP TO BEDSIDE COMODE WITH MAURICE MARTINEZ. PT DENIES PAIN AND NAUSEA. NO ADDITIONAL REQEUSTS OR CMPLAINTS. CALL LIGHT WITHIN REACH.
--- NOTE | 2021-10-12 08:00 | NUR ---
Called and spoke with Jazz from [facility]. They will review the chart at 0900. She believes they will accept this pt. She stated to go ahead and schedule transport for 1 pm per van and she will call or text me when it is confirmed.
--- NOTE | 2021-10-12 08:30 | NUR ---
Dr. Sneed in my office an updated. I scheduled transport for 1 pm with the [facility] van. They will use our wc and return it when transport complete. Received a call from Vinh, pts son in law. Updated to the above and I will call and confirm after 10 am when I hear from Jazz.
--- NOTE | 2021-10-12 09:08 | NUR ---
MORNING ASSESSMENT AND MEDICATION DUE. PT IN BED EATING BREAKFAST. PT ENCOURAGED TO GET UP TO CHAIR, BENIFITS AND RISKS OF EATING IN BED REVIEWED WITH PT. PT DECLINES GETTING UP TO CHAIR STATING "OH BULL SHIT, I'M STAYING WHERE I AM." PT DENIES PAIN AND NAUSEA. PT DISORIENTED TO PLACE AND DATE. PT ABLE TO STATE SHE IS AT THE HOSPITAL "BECAUSE I FELL." PT RECALLS ONLY ONE FALL AND STATES "I DONT' REMEMBER ANY OTHER FALLS." PT UP DATED ON PLAN OF CARE. PTS DON IN LAW AT BEDSIDE AND ASSISTING PT WITH UPDATE ON PLAN OF CARE. REMAINS WEAK IN BILATERAL LOWER EXTREMITIES. HEART TONES REGULAR, LUNG SOUNDS CLEAR. BOWEL TONES ACTIVE. PT REPORTS SHE HAS A GOOD APPITTIE. DR ESPOSITO TO BEDSIDE TO REVIEW PLAN FOR PLACEMENT AND CARE WITH PT AND PTS SON IN LAW. PT AND SON IN LAW STATE THEIR QUESTIONS HAVE BEEN ANSWERED. PT DENIES ADDITIONAL REQUESTS OR COMPLAINTS. CALL LIGHT WITHIN REACH. BED RAILS UP.
[2021-10-12] MEDS ORDERED: CEPHALEXIN500 MG PO (09:19)
[2021-10-12] MEDS ORDERED: LOSARTAN POTASS25 MG PO (09:20)
[2021-10-12] MEDS ORDERED: METOPROLOL SUCC50 MG PO (09:20)
[2021-10-12] MEDS ORDERED: LUMIGAN2.5 M1 OU (09:21)
[2021-10-12] MEDS ORDERED: MELATONIN3 MG PO (09:21)
[2021-10-12] MEDS ORDERED: LEVOTHYROXINE75 MCG PO (09:21)
[2021-10-12] MEDS ORDERED: ADULT LOW DOSE81 MG PO (09:21)
--- NOTE | 2021-10-12 09:29 | NUR ---
NEW MEDICATION ORDERS PLACED. THIS RN TO ROOM. PT CONTINUES RESTING IN BED, EATING BREAKFAST. PT CONTINUES TO DENY PAIN OR NAUSEA. MEDIATION GIVEN, NO SWALLOWING ISSUES NOTED. PT WATCHING TV AND VISITING WITH SON-IN-LAW. NO ADDITIONAL REQUESTS OR COMPLAINTS. CALL LIGHT WITHIN REACH. BED RAILS UP. BED ALARM ON.
--- NOTE | 2021-10-12 09:57 | NUR ---
VITALS AND I&OS CHARTED. PATIENT 1PA TO BSC FOR VOID. CALL LIGNT IN EASY REACH
--- NOTE | 2021-10-12 10:21 | NUR ---
THIS RN TO ROOM TO CHECK ON PT. PT WORKING WITH OCCUPATIONAL THERAPY. PT UP TO CHAIR AND REPORTS SHE FEELS "GOOD" GETTING UP. PT UNSTEADY ON FEET BUT ABLE TO TRANSFER WITH 1 PERSON ASSIST AND FWW. PT DENIES PAIN AND NAUSEA. NO ADDITIONAL REQUESTS OR COMPALINTS. CALL LIGHT WITHIN REACH. FAMILY AT BEDSIDE.
--- NOTE | 2021-10-12 11:44 | NUR ---
PT SITING IN CHAIR-INQUIRED HOW SHE WAS DOING. PT STATED "I'M PISSED". I ASKED WHY AND SHE RESPONDED BY TELLING ME SHE HAS TO GO TO A SNF IN . SHE ADDED, I WOULD RATHER GO HOME. I ENCOURAGED HER TO VIEW IT AN OPPORTUNITY TO GET STRONGER. CONSIDER IT A TOOL TO HELP HER ACCOMPLISH HER TASK OF IMPROVING WITH THE HOPE OF RETURNING HOME. THAT SEEMED TO CALM HER, Alethea NARAYANAN ENTERED Lexy TRAVIS ENCOURAGEMENT AND WILL FOLLOW
--- NOTE | 2021-10-12 12:17 | NUR ---
PT READY FOR DISCHARGE. PT VERBALZIES UNDERSTANDING OF HER TRANSFER TO [facility]. PT AND PTS SON-IN LAW VERBALIZE UNDERSTANDING OF PLAN OF CARE AND STATE THEIR QUESTIONS HAVE BEEN ANSWERED. PT DRESSED WITH 1 PERSON ASSIST. IV DC'D PER PROTOCOL, ESTELLE AND YESSICA APPLIED. VITAL SIGNS STABLE. PT EATING LUNCH AND AWAITING TRANSFER RIDE. NO ADDITIONAL REQUESTS OR COMPLAINTS. CALL LIGHT WITHIN REACH. FAMILY AT BEDSIDE.
--- NOTE | 2021-10-12 12:21 | NUR ---
MED REC COMPLETE
--- NOTE | 2021-10-12 13:27 | NUR ---
PATIENT SITTING UP IN CHAIR IN PERSONAL CLOTHING. FAMILY IN ROOM. VITALS AND I&OS CHARTED. NO OTHER NEEDS AT THIS TIME
--- NOTE | 2021-10-12 13:30 | NUR ---
TRANSPORT [facility] ARRIVED TO TRANSFER PT TO FACILITY. PT REPORST SHE HAS NO ADDITIONAL QUESTIONS OR CONCERNS. PT TRANSFERES SELF TO WHEELCHAIR WITH 1 PERSON ASSIST AND FWW. ALL BELONGINGS WITH PT. PT WHEELED FROM MED/SURG.
== END 2021-10-12 13:30 | disposition home or self-care (01) ==
LOC: ED 08:52 → MS 08:54
PROVIDERS: ADMIT Internal Medicine; ATTEND Internal Medicine
DX: G30.9 Alzheimer's disease, unspecified (principal); F02.80 Dementia in other diseases classified elsewhere, unspecified severity, without behavioral disturbance, psychotic disturbance, mood disturbance, and anxiety; R53.1 Weakness; R32 Unspecified urinary incontinence; N39.0 Urinary tract infection, site not specified; I10 Essential (primary) hypertension; E03.9 Hypothyroidism, unspecified; E78.5 Hyperlipidemia, unspecified; I25.10 Atherosclerotic heart disease of native coronary artery without angina pectoris; Z95.5 Presence of coronary angioplasty implant and graft; Z20.822 Contact with and (suspected) exposure to COVID-19
CPT/HCPCS: 36415; 80053; 81001; 82553; 85025; 87088; 97162; A9270; C9803; J0696; U0003